=== PATIENT | female | born 1955 | race Native Hawaiian/Other Pacific Islander ===

== ENCOUNTER 2021-07-14 08:46 | Outpatient (CLI) | payer OTHER | END 2021-07-14 20:52 | disposition home or self-care (01) | LOC: US 08:46 | PROVIDERS: ATTEND Internal Medicine | DX: Z00.00 Encounter for general adult medical examination without abnormal findings (principal); I48.20 Chronic atrial fibrillation, unspecified; Z13.820 Encounter for screening for osteoporosis; E05.80 Other thyrotoxicosis without thyrotoxic crisis or storm; M54.59 Other low back pain; M25.562 Pain in left knee; M25.561 Pain in right knee; N95.8 Other specified menopausal and perimenopausal disorders; R53.1 Weakness; R53.83 Other fatigue ==

== ENCOUNTER 2023-07-19 10:59 | Outpatient (CLI) | payer OTHER | END 2023-07-19 19:40 | disposition home or self-care (01) | LOC: MAMMO 10:59 | PROVIDERS: ATTEND Internal Medicine | DX: Z12.31 Encounter for screening mammogram for malignant neoplasm of breast (principal) ==